=== PATIENT | female | born 1965 | race Caucasian/White ===

== ENCOUNTER → 2023-08-12 | Outpatient (CLI) | payer SELFPAY ==
[~2023-08-12] MED LIST: EC NAPROSYN500 MG PO; HYDROCODONE BIT1 T11 PO; NORCO 5-325 TA1 EACH PO
== END | disposition home or self-care (01) ==
LOC: RESCLI 13:59
PROVIDERS: ATTEND Internal Medicine
DX: R63.4 Abnormal weight loss (principal); Z90.710 Acquired absence of both cervix and uterus; Z98.890 Other specified postprocedural states; Z82.49 Family history of ischemic heart disease and other diseases of the circulatory system; Z79.899 Other long term (current) drug therapy